=== PATIENT | female | born 1935 | race Caucasian/White ===

== ENCOUNTER 2017-02-12 14:14 | Emergency (ER) | payer MEDICARE | END 2017-02-12 15:00 | disposition home or self-care (01) | LOC: BURERS 14:14 | DX: J06.9 Acute upper respiratory infection, unspecified (principal); E11.9 Type 2 diabetes mellitus without complications; E78.5 Hyperlipidemia, unspecified; I10 Essential (primary) hypertension | CPT/HCPCS: 87804; 99284 ==

== ENCOUNTER 2017-10-05 16:12 | Emergency (ER) | payer MEDICARE ==
--- NOTE | 2017-10-05 23:00 | RAD ---
LEFT RIBS WITH PA CHEST: 10/05/2017 FINDINGS: Two of several views suggest that there may be a nondisplaced fracture through the distal end of the left eleventh rib. This should be correlated with the site of exact pain. The ribs otherwise appear intact, but subtle injuries could be missed due to mild osteoporosis. Heart size is stable and has not changed since 2013. There is no sign of pneumothorax, pleural effusi on, or pulmonary infiltrates on either side. Mild scoliosis is present, as always. There appears to have been partial resection of the distal end of the left clavicle. IMPRESSION: Possible hairline fracture at the distal end of the eleventh rib. CODE T POS: HOME
== END 2017-10-05 17:00 | disposition home or self-care (01) ==
LOC: BURERS 16:12
DX: S20.212A Contusion of left front wall of thorax, initial encounter (principal); E11.9 Type 2 diabetes mellitus without complications; E78.5 Hyperlipidemia, unspecified; I10 Essential (primary) hypertension; W22.8XXA Striking against or struck by other objects, initial encounter